=== PATIENT | female | born 1990 | race Caucasian/White ===

== ENCOUNTER 2024-05-12 23:01 | Emergency (ER) | payer BC ==
--- OUTSIDE RECORDS SUMMARY | 2024-05-12 23:03 | XMS REPORT | Continuity of Care Document ---
Author Name Unknown Address [address] [facility] [address] [place] [address] [facility] thconnect Address [address] [facility] [address] [place] [address] Care Team Providers Care Center Director Name Role Phone PCP, PATIENT DOES NOT HAVE A Primary Care Physic Susie Holguin Attending Clinician NALLELY Pang Attending Clinician NALLELY Way Attending Clinician Ghazala isabel Payers Payer Name Policy Type Policy Number Effective Date Expirati on Date Source [facility] [id number] 2023 00:00:00 Allergies, Adverse Reactions, Alerts Allergy Name Allergy Type Status Severity Reaction(s) Onset Date Inactive Date Treating Clinician Comments Source NO KNOWN ALLERGIE S Drug Class Active [facility] Social History Social Habit Start Date Stop Date Quantity Comments Source [facility] Tobacco use and exposure 2023-12-27 00:00:00 2023-12-27 00:00:00 Smokeless tobacco non-user [facility] Alcohol intake 2023-12-27 00:00:00 2023-12-27 00:00:00 Current drinker of alcohol (finding) [facility] History of Social function 2023-12-27 00:00:00 2023-12-27 00:00:00 [facility] Sex Assigned At 1990 00:00:00 1990 00:00:00 [facility] Smoking Status Start Date Stop Date Source Never smoked tobacco [facility] Medications Ordered Medication Name Filled Medication Name Start Date Stop Date Current Medication? Ordering Clinician Indication Dosage Frequency Signature (SIG) Comments Components Source hydroCHLORO thiazide 12.5 mg tablet 12-26 09:31: 26 Yes 12.5mg Take 1 tablet by mouth in the morning. [facility] FLUTICASONE PROPIONATE NASAL 12-26 09:31: 26 Yes Use in each nostril. [facility] sally.estrad iol-iron (LIZANDRO FE 09/24, , ORAL) 12-26 09:31: 26 12-26 00:00 :00 No Take by mouth. [facility] ne[facility] ioL-iron (LIZANDRO FE 09/24, ,) 1 mg-20 mcg (21)/75 mg (7) tablet 12-26 00:00: 00 Yes [id number] 1{tbl} Take 1 tablet by mouth in the morning. [facility] Vital Signs Vital Name Observation Time Observation Value Comments S sujatha Systolic blood pressure 2023-12-27 14:29:00 131 mm[Hg] [facility] Diastolic blood pressure 2023-12-27 14:29:00 85 mm[Hg] [facility] Heart rate 2023-12-27 14:29:00 78 /min [facility] Body temperature 2023-12-27 14:29:00 36.78 Yomaira [facility] Respiratory rate 2023-12-27 14:29:00 16 /min [facility] Body height 2023-12-27 14:29:00 170.2 cm [facility] Body weight 2023-12-27 14:29:00 125.374 kg [facility] BMI 2023-12-27 14:29:00 43.29 kg/m2 [facility] Oxygen saturation in Arterial blood by Pulse oximetry 2023-12-27 14:29:00 100 /min [facility] Encounters Start Date/Time End Date/Time Encounter Type Admission Type Attending Clinicians Care Facility Care Department Encounter ID Source 2023-12-28 09:43:03 Outpatient Susie Castanon [facility] [id number] [facility] 2025-01-01 09:30:00 2025-01-01 09:30:00 [facility] [id number] [facility] 2023-12-27 09:30:00 2023-12-27 09:51:03 Outpatient NALLELY SANTIAGO [facility] [id number] [facility] 2023-12-27 09:30:00 2023-12-27 09:51:03 Office Visit Mirella Jerezsol [facility] [id number] [facility]
[2024-05-12] MEDS ORDERED: HYDROCODONE/APAP 5/325 MG TAB ONE (23:20)
[2024-05-12] MEDS ORDERED: ONDANSETRON 4 MG (ODT) TAB ONE (23:20)
--- NOTE | 2024-05-13 01:00 | EDPHYS ---
Physician Documentation [facility] Name: Gabby Niño Age: 34 yrs Sex: Female : 1990 Arrival Date: 05/12/2024 Time: 23:01 Bed 10 Private MD: ED Physician Wiliam Jones HPI: 05/12 23:19 This 34 yrs old Female presents to ER via Wheelchair with complaints of Ankle Injury, rn Foot Injury - left. 23:19 The patient presents with a laceration, pain, swelling. The complaints affect the left rn ankle. Onset: The symptoms/episode began/occurred just prior to arrival. Modifying factors: The symptoms are alleviated by nothing, the symptoms are aggravated by weight bearing, movement. Severity of symptoms: At their worst the symptoms were moderate, in the emergency department the symptoms are unchanged. The patient has not experienced similar symptoms in the past. Patient reports misstep off of porch, injured left lateral ankle with swelling and pain.. 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 - Infectious Disease History:: Denies. - Social history:: Smoking status: Patient denies any tobacco usage or history of. Patient uses alcohol, occasionally. - Family history:: not pertinent. - Hospitalizations: : No recent hospitalization is reported. ROS: 23:19 Constitutional: Negative for fever, chills, and weight loss, MS/Extremity: Positive for rn left ankle injury and pain with swelling Exam: 23:19 Constitutional: This is a well developed, well nourished patient who is awake, alert, rn and in no acute distress. MS/ Extremity: Pulses equal, no cyanosis. Neurovascular intact. Swelling with tenderness lateral malleolus. No open wounds. No gross deformity. No proximal tib-fib tenderness. No knee pain with range of motion or patellar tenderness. No medial malleoli or tenderness. No tenderness or swelling in the foot proper. Vital Signs: 23:08 BP 168 / 90; Pulse 101; Resp 17 S; Temp 97.9(O); Pulse Ox 100% on R/A; Weight 122.47 kg lg3 (R); Height 5 ft. 6 in. (R); 05/13 01:27 BP 161 / 88; Pulse 95; Resp 17 S; Temp 97.4(O); Pulse Ox 100% on R/A; lg3 05/12 23:08 Body Mass Index 43.58 (122.47 kg, 167.64 cm) lg3 MDM: 05/12 23:07 Patient medically screened. rn 05/13 00:58 Differential diagnosis: fracture, sprain. Data reviewed: vital signs, nurses notes, rn radiologic studies, plain films, and as a result, I will discharge patient. Counseling: I had a detailed discussion with the patient and/or guardian regarding the historical points, exam findings, and any diagnostic results supporting the discharge/admit diagnosis, radiology results, the need for outpatient follow up, to return to the emergency department if symptoms worsen or persist or if there are any questions or concerns that arise at home. Response to treatment: the patient's symptoms have mildly improved after treatment. Special discussion: I discussed with the patient/guardian in detail that at this point there is no indication for admission to the hospital. It is understood, however, that if the symptoms persist or worsen the patient needs to return immediately for re-evaluation. Further emergent ED testing is not indicated at this point in time. I discussed with the patient/guardian in detail the need to arrange with the PCP or specialist further outpatient testing, MRI, stress ankle xray. Based on the history and exam findings, there is no indication for further emergent testing or inpatient evaluation. I discussed with the patient/guardian the need to see the orthopedic surgeon for further evaluation of the symptoms. 05/12 23:13 Order name: XRAY Ankle LEFT 3 view rn 05/13 00:58 Order name: Splint - Ankle: Orthoglass: Juan Jose; Complete Time: 01:19 rn Administered Medications: 05/12 23:23 Drug: HYDROcodone-acetaminophen PO 5 mg-325 mg 1 tabs PO once Route: PO; lg3 05/13 01:26 Follow up: Response: No adverse reaction; Marked relief of symptoms; Pain is decreased [facility] 05/12 23:23 Drug: Ondansetron PO 4 mg PO once Route: PO; 3 05/13 01:26 Follow up: Response: No adverse reaction lg3 Disposition Summary: 05/13/24 00:59 Discharge Ordered Notes: Location: Home rn Problem: new rn Symptoms: have improved rn Condition: Stable rn Diagnosis - Nondisplaced fracture of lateral malleolus of left fibula rn Followup: rn - With: Private Physician - When: As needed - Reason: Recheck today's complaints, Re-evaluation by your physician Discharge Instructions: - Discharge Summary Sheet rn - Ankle Fracture rn - Cast or Splint Care, Adult rn - Crutch Use, Adult rn Forms: - Medication Reconciliation Form rn - Antibiotic braid pattern setter - Prescription Opioid Use rn - Patient Portal Instructions rn - Leadership Thank You Letter rn Prescriptions: - Tramadol 50 mg Oral Tablet - take 1 tablet ORAL route every 8 hours as needed; 12 tablet; Refills: 0, rn Product Selection Permitted Signatures: Dispatcher [employer] EDWiliam Heaton MD MD rn AbleCecile RN RN lg3 Corrections: (The following items were deleted from the chart) 01:21 00:58 Crutches ordered. rn ty
--- NOTE | 2024-05-13 01:00 | ER ---
Nurse's Notes [facility] Name: Gabby Niño Age: 34 yrs Sex: Female : 1990 Arrival Date: 05/12/2024 Time: 23:01 Bed 10 Private MD: Diagnosis: Nondisplaced fracture of lateral malleolus of left fibula Presentation: 05/12 23:08 Chief complaint: Patient states: rolled left ankle stepping off of back porch. swelling lg3 and bruising noted. Coronavirus screen: Client denies travel out of the [place] in the last 14 days. At this time, the client does not indicate any symptoms associated with coronavirus-19. Ebola Screen: No symptoms or risks identified at this time. Initial Sepsis Screen: Does the patient meet any 2 criteria? No. Patient's initial sepsis screen is negative. Does the patient have a suspected source of infection? No. Patient's initial sepsis screen is negative. Risk Assessment: Do you want to hurt yourself or someone else? Patient reports no desire to harm self or others. Onset of symptoms was May 12, 2024. 23:08 Method Of Arrival: Wheelchair lg3 23:08 Acuity: JODY 4 lg3 Triage Assessment: 23:13 General: Appears in no apparent distress. uncomfortable, Behavior is calm, cooperative. lg3 Pain: Complains of pain in left lateral ankle Pain does not radiate. EENT: No deficits noted. No signs and/or symptoms were reported regarding the EENT system. Neuro: No deficits noted. Griffith Agitation-Sedation Scale (RASS): 0 - Alert and Calm Level of Consciousness is awake, alert, obeys commands, Oriented to person, place, time, situation. Cardiovascular: No deficits noted. Denies chest pain, shortness of breath, Capillary refill < 3 seconds Clubbing of nail beds is absent JVD is absent Patient's skin is warm and dry. Respiratory: No deficits noted. Airway is patent Respiratory effort is even, unlabored, Respiratory pattern is regular, symmetrical. GI: No deficits noted. No signs and/or symptoms were reported involving the gastrointestinal system. : No deficits noted. No signs and/or symptoms were reported regarding the genitourinary system. Derm: Skin is intact, is healthy with good turgor, Skin is dry, Skin is normal, Skin temperature is warm Bruising that is on left lateral ankle and anterior aspect of left ankle. Musculoskeletal: Circulation, motion, and sensation intact. Range of motion: limited in left ankle Swelling present in left ankle. 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 - Infectious Disease History:: Denies. - Social history:: Smoking status: Patient denies any tobacco usage or history of. Patient uses alcohol, occasionally. - Family history:: not pertinent. - Hospitalizations: : No recent hospitalization is reported. Screenin:17 [facility] ED Fall Risk Assessment (Adult) History of falling in the last 3 months, lg3 including since admission Yes- single mechanical fall (1 pt) Confusion or Disorientation No (0 pts) Intoxicated or Sedated No (0 pts) Impaired Gait No (0 pts) Mobility Assist Device Used No (0 pt) Altered Elimination No (0 pt) Score/Fall Risk Level 0 - 2 = Low Risk Oriented to surroundings, Maintained a safe environment, Educated pt \T\ family on fall prevention, incl call for assistance when getting out of bed, Assessed \T\ reinforced patient's understanding of fall precautions. Abuse screen: Denies threats or abuse. Denies injuries from another. Nutritional screening: No deficits noted. Tuberculosis screening: No symptoms or risk factors identified. Assessment: 23:17 General: see triage assessment. lg3 05/13 01:26 Reassessment: Patient appears in no apparent distress at this time. No changes from lg3 previously documented assessment. Patient and/or family updated on plan of care and expected duration. Pain level reassessed. Patient is alert, oriented x 3, equal unlabored respirations, skin warm/dry/pink. Vital Signs: 05/12 23:08 BP 168 / 90; Pulse 101; Resp 17 S; Temp 97.9(O); Pulse Ox 100% on R/A; Weight 122.47 kg lg3 (R); Height 5 ft. 6 in. (R); 05/13 01:27 BP 161 / 88; Pulse 95; Resp 17 S; Temp 97.4(O); Pulse Ox 100% on R/A; lg3 05/12 23:08 Body Mass Index 43.58 (122.47 kg, 167.64 cm) lg3 ED Course: 05/12 23:04 Patient arrived in ED. ra3 23:07 Wiliam Jones MD is Attending Physician. rn 23:13 Triage completed. lg3 23:13 Arm band placed on right wrist. lg3 23:17 Patient has correct armband on for positive identification. lg3 23:58 XRAY Ankle LEFT 3 view In Process Unspecified. EDMS 05/13 01:22 Cyrus wrap to left ankle Orthoglass splint: stirrup splint applied on left leg. ty 01:27 Assist provider with fracture care of left ankle Fracture is closed. Obvious deformity lg3 is not noted. Circulation, motor and sensation is intact. Set up for procedure. Performed by Wiliam Jones MD Immobilized with OCL splint, Post immobilization, circulation, motor and sensation remain intact. Patient tolerated well. Patient did not have IV access during this emergency room visit. Administered Medications: 05/12 23:23 Drug: HYDROcodone-acetaminophen PO 5 mg-325 mg 1 tabs PO once Route: PO; lg3 05/13 01:26 Follow up: Response: No adverse reaction; Marked relief of symptoms; Pain is decreased lg3 05/12 23:23 Drug: Ondansetron PO 4 mg PO once Route: PO; lg3 05/13 01:26 Follow up: Response: No adverse reaction lg3 Medication: 05/12 23:17 VIS not applicable for this client. lg3 Outcome: 05/13 00:59 Discharge ordered by . rn 01:28 Discharged to home via wheelchair, with family, lg3 :28 Condition: stable 01:33 Discharge instructions given to patient, Instructed on discharge instructions, follow lg3 up and referral plans. medication usage, Demonstrated understanding of instructions, follow-up care, medications, splint care, Prescriptions given X 1, :33 Patient left the ED. lg3 Signatures: Dispatcher [employer] EDCT Wiliam Jones MD MD rn Able, Lacie, RN RN lg3 Norma Bell ra3 Sarkis Han ty
[2024-05-13 01:40] VITALS: O2SAT 100
[2024-05-13 01:41] VITALS: BP 161/88; TEMP 97.4
--- NOTE | 2024-05-14 13:28 | RAD REPORT ---
EXAM DESCRIPTION: Ankle Left 3 View CLINICAL HISTORY: Bed:; Pain;Swelling COMPARISON: None FINDINGS: The 3 views of the left ankle show oblique fracture of the distal fibular metaphysis. This is at the level of the ankle mortise. The tibia appears intact. The subtalar joint is unremarkable. There is no definite ankle joint effusion. The mortise is normal. There are no radiopaque foreign b odies in the soft tissues. Moderate soft tissue swelling is noted about the lateral malleolus. If there is further concern, recommend follow-up radiographs or MRI for complete assessment. IMPRESSION: 1. Oblique fracture of the distal fibular metaphysis at the level of the ankle mortise. Associated soft tissue swelling is noted. Electronically signed by: Emir Alcantar MD 05/13/2024 12:15 AM CDT Due to temporary technical issues with the PACS/Fluency reporting system, reports are being signed by the in house radiologists without review as a courtesy to insure prompt reporting. The interpreting radiologist is fully responsible for the content of the report.
== END 2024-05-13 01:33 | disposition home or self-care (01) ==
LOC: ER 23:01
DX: S82.65XA Nondisplaced fracture of lateral malleolus of left fibula, initial encounter for closed fracture (principal); W17.89XA Other fall from one level to another, initial encounter; Y93.89 Activity, other specified; Y92.018 Other place in single-family (private) house as the place of occurrence of the external cause
CPT/HCPCS: 73610; 99284; Q0162